=== PATIENT | male | born 1990 | race American Indian/Alaskan Native ===

== ENCOUNTER 2020-01-20 20:07 | Emergency (ER) | payer MEDICAID ==
--- NOTE | 2020-01-20 21:23 | EDM.PDOC ---
ED HPI GENERAL MEDICAL PROBLEM - General Chief Complaint: Respiratory Problem Stated Complaint: SORE CHEST, SORE THROAT Time Seen by Provider: 01/20/20 21:15 Source of Information: Reports: Patient History Limitations: Reports: No Limitations - History of Present Illness INITIAL COMMENTS - FREE TEXT/NARRATIVE: has had st , cough and left sided ear pain for 3 days has gradually gotten worse pain radiates from the throat to the ear Onset: Gradual Duration: Day(s): (3) Location: Reports: Chest Quality: Reports: Burning, Sharp Severity: Moderate Worsens with: Reports: Breathing, Movement Associated Symptoms: Reports: Loss of Appetite, Malaise - Related Data Allergies Allergy/AdvReac Type Severity Reaction Status Date / Time amoxicillin Allergy Other Verified 01/20/20 21:44 Home Meds: Home Meds Azithromycin [Zithromax] 250 mg PO DAILY #4 tab 01/20/20 [Rx] Omeprazole Magnesium [Prilosec Otc] 5 mg PO DAILY PRN 01/20/20 [History] ED ROS GENERAL - Review of Systems Review Of Systems: Comprehensive ROS is negative, except as noted in HPI. ED EXAM, GENERAL - Physical Exam Exam: See Below Exam Limited By: No Limitations General Appearance: Alert, WD/WN, No Apparent Distress Eye Exam: Bilateral Eye: EOMI Ears: Normal External Exam Ear Exam: Bilateral Ear: Swelling, TM Dull Nose: Clear Rhinorrhea Throat/Mouth: Inflammation (erythema oropharynx) Head: Atraumatic, Normocephalic Neck: Supple, Non-Tender, Full Range of Motion Respiratory/Chest: Lungs Clear, Normal Breath Sounds, Chest Non-Tender Cardiovascular: Regular Rate, Rhythm, No JVD Back Exam: Full Range of Motion Extremities: Normal Range of Motion Neurological: Alert, Oriented, CN II-XII Intact Psychiatric: Normal Affect Course - Orders/Labs/Meds Orders: Active Orders 24 hr Category Date Time Status CULTURE STREP A CONFIRMATION [RM] Stat Lab 01/20/20 21:15 Results STREP SCRN A RAPID W CULT CONF [] Stat Lab 01/20/20 21:15 Results - Re-Assessments/Exams Free Text/Narrative Re-Assessment/Exam: 01/20/20 22:19 reviewed tests results negative pt given note for work Departure - Departure Time of Disposition: 22:30 Disposition: Home, Self-Care 01 Clinical Impression: Acute bacterial pharyngitis - Discharge Information Referrals: PCP,None [Primary Care Provider] - Forms: ED Department Discharge Sepsis Event Note - Focused Exam Date Exam was Performed: 01/20/20 Time Exam was Performed: 22:19 - My Orders Last 24 Hours: My Active Orders 01/20/20 21:15 CULTURE STREP A CONFIRMATION [RM] Stat STREP SCRN A RAPID W CULT CONF [RM] Stat - Assessment/Plan Last 24 Hours: My Active Orders 01/20/20 21:15 CULTURE STREP A CONFIRMATION [RM] Stat STREP SCRN A RAPID W CULT CONF [RM] Stat
[2020-01-20] MEDS ORDERED: Azithromycin 500 MG Tab PO ONE (22:21)
== END 2020-01-20 22:44 | disposition home or self-care (01) ==
LOC: FB.ED 20:07
DX: J02.8 Acute pharyngitis due to other specified organisms (principal); B96.89 Other specified bacterial agents as the cause of diseases classified elsewhere; Z88.1 Allergy status to other antibiotic agents
CPT/HCPCS: 87081; 87804; 87880; 99283; A9270

== ENCOUNTER 2020-07-13 07:05 | Day surgery (SDC) | payer MEDICAID, OTHER ==
[~2020-07-13 07:05] MED LIST: Lactated Ringers 1,000 ML IV SCH; Sodium Chloride 0.9% 10 ML Syringe FLUSH PRN
[2020-07-13] MEDS ORDERED: Propofol 200 MG/20 ML SDV IV ONE (07:06)
[2020-07-13] MEDS ORDERED: Lidocaine 2% 5 ML SDV IV ONE (07:06)
--- NOTE | 2020-07-13 08:09 | PCM.OPNOTE ---
- General Post-Op/Procedure Note Date of Surgery/Procedure: 07/13/20 Operative Procedure(s): egd with biopsy Findings: gastritis irregular z line hiatal hernia Pre Op Diagnosis: heart burn Post-Op Diagnosis: gastritis. irregular z line. hiatal hernia Anesthesia Technique: MAC Primary Surgeon: Linden Sarmiento Anesthesia Provider: Mc Pak Pathology: stomach and distal esophagus Complications: None Condition: Good Free Text/Narrative:: see dictation
--- NOTE | 2020-07-13 13:40 | OR ---
DATE OF OPERATION: 07/13/2020 SURGEON: Linden Sarmiento MD PROCEDURE PERFORMED: Esophagogastroduodenoscopy with cold forceps biopsy. PREOPERATIVE DIAGNOSIS: History of heartburn. POSTOPERATIVE DIAGNOSES: Gastritis, hiatal hernia, and irregular Z-line. INDICATIONS FOR PROCEDURE: This is a 30-year-old white male, referred with a 10 year history of what appears to be heartburn, gastroesophageal reflux disease. He has never had an EGD, does report some relief recently with the addition of proton pump inhibitor. DESCRIPTION OF OPERATION: After an excellent IV sedation was administered, the bite block was inserted. Flexible endoscope was passed without difficulty down the patient's esophagus into the stomach. Stomach was insufflated. Scope passed through the pylorus, second portion of the duodenum and slowly withdrawn. The following findings were noted: Duodenum was unremarkable. Stomach, especially in the area of the antrum, mild gastritis, biopsies were taken. The patient also appears to have a small hiatal hernia. GE junction measured at approximately 38 cm. The Z-line itself appeared to be slightly irregular and several biopsies were taken of this area. The remainder of the esophageal exam was unremarkable. The patient tolerated the procedure well, was taken to Recovery. Results will be sent via letter. /[id number] /MODL
== END 2020-07-13 09:16 | disposition home or self-care (01) ==
LOC: FB.SDS 07:05
PROVIDERS: ATTEND Surgery
DX: K29.50 Unspecified chronic gastritis without bleeding (principal); K31.89 Other diseases of stomach and duodenum; K20.0 Eosinophilic esophagitis; K44.9 Diaphragmatic hernia without obstruction or gangrene; Z79.899 Other long term (current) drug therapy; Z88.0 Allergy status to penicillin; Z87.891 Personal history of nicotine dependence
CPT/HCPCS: 00731-QZ; 88305; 88313; 88342; J2001; J2704; J7120

== ENCOUNTER 2020-07-17 20:08 | Emergency (ER) | payer OTHER, MEDICAID ==
[2020-07-17] MEDS ORDERED: Acetaminophen/HYDROcodone 325-5 MG Tab PO STA (20:40)
[2020-07-17] MEDS ORDERED: Ketorolac 60 MG/2 ML SDV IM ONE (20:40)
--- NOTE | 2020-07-17 21:16 | EDM.PDOC ---
ED HPI GENERAL MEDICAL PROBLEM - General Stated Complaint: POSSIBLE BROKEN ARM Time Seen by Provider: 07/17/20 21:10 Source of Information: Reports: Patient History Limitations: Reports: No Limitations - History of Present Illness INITIAL COMMENTS - FREE TEXT/NARRATIVE: Patient presented to the ED because of a left elbow pain. [place]. The pain is 8/10 and couldn't move his left elbow. - Related Data Allergies Allergy/AdvReac Type Severity Reaction Status Date / Time amoxicillin Allergy Other Verified 07/09/20 11:45 Home Meds: Home Meds Pantoprazole [ProTONIX] 40 mg PO DAILY 07/09/20 [History] Acetaminophen/HYDROcodone [Bernice 325-5 MG] 1 - 2 tab PO Q6H PRN #15 tab 07/17/20 [Rx] Past Medical History Gastrointestinal History: Reports: Other (See Below) Other Gastrointestinal History: acid reflux Musculoskeletal History: Reports: Fracture, Other (See Below) Other Musculoskeletal History: tibia, arm, finger - Past Surgical History HEENT Surgical History: Reports: Other (See Below) Other HEENT Surgeries/Procedures: wisdom teeth removal GI Surgical History: Reports: Hernia Repair/Other Other Male Surgeries/Procedures: INGUINAL HERNIA, BILATERAL Social & Family History - Family History Family Medical History: Noncontributory - Caffeine Use Caffeine Use: Reports: Energy Drinks Review of Systems - Review of Systems Review Of Systems: See Below Constitutional: Reports: No Symptoms Eyes: Reports: No Symptoms Ears: Reports: No Symptoms Nose: Reports: No Symptoms Mouth/Throat: Reports: No Symptoms Respiratory: Reports: No Symptoms Cardiovascular: Reports: No Symptoms GI/Abdominal: Reports: No Symptoms Genitourinary: Reports: No Symptoms Musculoskeletal: Reports: Joint Pain, Joint Swelling Skin: Reports: No Symptoms ED EXAM, GENERAL - Physical Exam Exam: See Below Exam Limited By: No Limitations General Appearance: Alert, No Apparent Distress Ears: Normal External Exam, Normal Canal Nose: Normal Inspection, Normal Mucosa, No Blood Throat/Mouth: Normal Inspection, Normal Lips, Normal Teeth Head: Atraumatic, Normocephalic Neck: Normal Inspection, Supple, Non-Tender, Full Range of Motion Respiratory/Chest: No Respiratory Distress, Lungs Clear, Normal Breath Sounds Cardiovascular: Normal Peripheral Pulses, Regular Rate, Rhythm, No Edema, No JVD, No Murmur GI/Abdominal: Normal Bowel Sounds, Soft, Non-Tender, No Organomegaly Back Exam: Normal Inspection, Full Range of Motion Extremities: Joint Swelling, Arm Pain, Limited Range of Motion, Other (tenderness left elbow) Course - Vital Signs Text/Narrative:: Xray left elbow-see result Toradol 60 mg IM x1 Bernice 5/325, 2 tabs po x 1 dose Ortho glass splint applied by ED physician - Orders/Labs/Meds Orders: Active Orders 24 hr Category Date Time Status Elbow Min 3V Lt [CR] Stat Exams 07/17/20 20:15 Taken Meds: Medications Discontinued Medications Generic Name Dose Route Start Last Admin Trade Name Freq PRN Reason Stop Dose Admin Hydrocodone Bitart/Acetaminophen 2 tab 07/17/20 20:40 07/17/20 21:07 Bernice 325-5 Mg PO 07/17/20 20:41 2 tab NOW STA Administration Ketorolac Tromethamine 60 mg 07/17/20 20:40 07/17/20 21:07 Toradol IM 07/17/20 20:41 60 mg ONETIME ONE Administration Departure - Departure Time of Disposition: 21:15 Disposition: Admitted As Inpatient 68 Condition: Good Clinical Impression: Avulsion fracture - Discharge Information Prescriptions: Acetaminophen/HYDROcodone [Bernice 325-5 MG] 1 - 2 tab PO Q6H PRN #15 tab PRN Reason: Pain Instructions: Ulnar Collateral Ligament Injury of the Elbow, Phase II Rehab- [facility] Referrals: Darrick Maldonado MD [Primary Care Provider] - Additional Instructions: please read discharge instructions on avulsion fracture take norco5/325, 1-2 tablets every 4-6 hours as needed for pain Follow up with ortho this coming week - My Orders Last 24 Hours: My Active Orders 07/17/20 20:15 Elbow Min 3V Lt [CR] Stat - Assessment/Plan Last 24 Hours: My Active Orders 07/17/20 20:15 Elbow Min 3V Lt [CR] Stat
== END 2020-07-17 21:42 | disposition home or self-care (01) ==
LOC: FB.ED 20:08
DX: S52.042A Displaced fracture of coronoid process of left ulna, initial encounter for closed fracture (principal); K21.9 Gastro-esophageal reflux disease without esophagitis; Z88.1 Allergy status to other antibiotic agents; Z79.899 Other long term (current) drug therapy; W17.89XA Other fall from one level to another, initial encounter; Y92.828 Other wilderness area as the place of occurrence of the external cause
CPT/HCPCS: 29105; 73080-LT; 96372; 99283-25; A9270-GY; J1885

== ENCOUNTER 2020-10-23 00:30 | Emergency (ER) | payer OTHER, MEDICAID ==
[2020-10-23] MEDS ORDERED: Acetaminophen/HYDROcodone 325-5 MG Tab PO ONE (00:31)
--- NOTE | 2020-10-23 13:52 | EDM.PDOC ---
ED HPI GENERAL MEDICAL PROBLEM - General Chief Complaint: General Stated Complaint: INFECTED TOE NAIL Time Seen by Provider: 10/23/20 00:30 Source of Information: Reports: Patient History Limitations: Reports: No Limitations - History of Present Illness INITIAL COMMENTS - FREE TEXT/NARRATIVE: pt c/o right ingrown right great toenail , tells me it has been bothering him for about 3 days and he is worried about infection, pt denies any fever, drainage or any other associated sx or concerns. Left Great Toe Pain Score (Numeric/FACES): 8 - Related Data Allergies Allergy/AdvReac Type Severity Reaction Status Date / Time amoxicillin Allergy Other Verified 10/23/20 00:48 Home Meds: Home Meds Pantoprazole [ProTONIX] 40 mg PO DAILY 07/09/20 [History] Past Medical History Gastrointestinal History: Reports: GERD Other Gastrointestinal History: acid reflux Musculoskeletal History: Reports: Fracture, Other (See Below) Other Musculoskeletal History: tibia, arm, finger - Past Surgical History HEENT Surgical History: Reports: Other (See Below) Other HEENT Surgeries/Procedures: wisdom teeth removal GI Surgical History: Reports: Hernia Repair/Other Other Male Surgeries/Procedures: INGUINAL HERNIA, BILATERAL Social & Family History - Family History Family Medical History: No Pertinent Family History - Tobacco Use Tobacco Use Status *Q: Former Tobacco User Used Tobacco, but Quit: Yes Month/Year Tobacco Last Used: 2019 - Caffeine Use Caffeine Use: Reports: Energy Drinks - Recreational Drug Use Recreational Drug Use: No ED ROS GENERAL - Review of Systems Review Of Systems: See Below Constitutional: Reports: No Symptoms HEENT: Reports: No Symptoms Respiratory: Reports: No Symptoms Cardiovascular: Reports: No Symptoms ED EXAM, GENERAL - Physical Exam Exam: See Below Respiratory/Chest: No Respiratory Distress, Lungs Clear Cardiovascular: Normal Peripheral Pulses, Regular Rate, Rhythm Extremities: Other (pt has mild inflimation at medial side of right great toe nail , no palpable abscess and no active drainage. ) Neurological: Alert, Oriented Course - Vital Signs Text/Narrative:: pt has soft tissue irritation and inflammation at right great toe , he was advised to schedule a follow up appointent with PCP in the morning for partial resection of great toe neail. pt was given pre-pack / 4 tablets hydrocodone for pain control Last Recorded V/S: Last Vital Signs Temp 36.3 C 10/23/20 01:18 Pulse 68 10/23/20 01:18 Resp 18 10/23/20 01:18 BP 115/67 10/23/20 01:18 Pulse Ox 95 10/23/20 01:18 Departure - Departure Time of Disposition: 01:00 Disposition: Home, Self-Care 01 Clinical Impression: Great toe pain - Discharge Information Instructions: Ingrown Toenail Referrals: Darrick Maldonado MD [Primary Care Provider] - Forms: ED Department Discharge Additional Instructions: Soak your foot in warm water. May take Hydrocodone 2 tabs every 4 hours as needed for pain management. Follow-up with primary care physician in the AM. Sepsis Event Note (ED) - Evaluation Sepsis Screening Result: No Definite Risk
== END 2020-10-23 01:19 | disposition home or self-care (01) ==
LOC: FB.ED 00:30
DX: M79.674 Pain in right toe(s) (principal); K21.9 Gastro-esophageal reflux disease without esophagitis; Z79.899 Other long term (current) drug therapy; Z87.891 Personal history of nicotine dependence; Z88.1 Allergy status to other antibiotic agents
CPT/HCPCS: 99283; A9270-GY

== ENCOUNTER 2021-02-25 22:27 | Emergency (ER) | payer OTHER, MEDICAID ==
[2021-02-25] MEDS ORDERED: Cephalexin 500 MG Cap PO ONE (22:28)
[2021-02-25] MEDS ORDERED: traMADol 50 MG Tab PO ONE (22:28)
--- NOTE | 2021-02-25 22:38 | EDM.PDOC ---
ED HPI GENERAL MEDICAL PROBLEM - General Stated Complaint: R BIG TOE INJURY Time Seen by Provider: 02/25/21 22:35 Source of Information: Reports: Patient History Limitations: Reports: No Limitations - History of Present Illness INITIAL COMMENTS - FREE TEXT/NARRATIVE: Otoniel complains of right toe injury,and pus from the toe. He had pus before he stubbed it tonight.Throbbing pain. Initially bleeding,but this has improved - Related Data Allergies Allergy/AdvReac Type Severity Reaction Status Date / Time amoxicillin Allergy Other Verified 10/23/20 00:48 Home Meds: Home Meds Pantoprazole [ProTONIX] 40 mg PO DAILY 07/09/20 [History] Past Medical History Gastrointestinal History: Reports: GERD Other Gastrointestinal History: acid reflux Musculoskeletal History: Reports: Fracture, Other (See Below) Other Musculoskeletal History: tibia, arm, finger - Past Surgical History HEENT Surgical History: Reports: Other (See Below) Other HEENT Surgeries/Procedures: wisdom teeth removal GI Surgical History: Reports: Hernia Repair/Other Other Male Surgeries/Procedures: INGUINAL HERNIA, BILATERAL Social & Family History - Family History Family Medical History: No Pertinent Family History - Caffeine Use Caffeine Use: Reports: Energy Drinks Review of Systems - Review of Systems Review Of Systems: Comprehensive ROS is negative, except as noted in HPI. ED EXAM, GENERAL - Physical Exam Exam: See Below Exam Limited By: No Limitations General Appearance: Alert, WD/WN Ear Exam: Bilateral Ear: Auricle Normal, Canal Normal, TM normal Nose: Normal Inspection Throat/Mouth: Normal Inspection Head: Atraumatic Neck: Normal Inspection Respiratory/Chest: No Respiratory Distress Cardiovascular: Normal Peripheral Pulses GI/Abdominal: Normal Bowel Sounds (Male) Exam: No Hernia Extremities: Redness, Other (Toe is tender,ingrown) Neurological: Alert Psychiatric: Normal Affect Departure - Departure Time of Disposition: 22:37 Disposition: Home, Self-Care 01 Condition: Good Clinical Impression: Great toe pain - Discharge Information Referrals: Darrick Maldonado MD [Primary Care Provider] - - Problem List & Annotations (1) Great toe pain SNOMED Code(s): 712717604 Code(s): M79.676 - PAIN IN UNSPECIFIED TOE(S) Status: Acute - Problem List Review Problem List Initiated/Reviewed/Updated: Yes - My Orders Last 24 Hours: Tramadol 50 mg tid prn and Cephalexin 500 mg po tid. Follow up tomorrow
== END 2021-02-25 23:00 | disposition home or self-care (01) ==
LOC: FB.ED 22:27
DX: M79.674 Pain in right toe(s) (principal); K21.9 Gastro-esophageal reflux disease without esophagitis; Z79.899 Other long term (current) drug therapy; Z88.0 Allergy status to penicillin
CPT/HCPCS: 99283; A9270

== ENCOUNTER 2021-03-29 19:07 | Emergency (ER) | payer OTHER, MEDICAID ==
--- NOTE | 2021-03-29 19:56 | EDM.PDOC ---
ED HPI GENERAL MEDICAL PROBLEM - General Stated Complaint: LEFT FINGER LACERATION Time Seen by Provider: 03/29/21 19:25 Source of Information: Reports: Patient History Limitations: Reports: No Limitations - History of Present Illness INITIAL COMMENTS - FREE TEXT/NARRATIVE: Patient presented to the ED because of left thumb laceration. 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 He is able to extend and flex the left index finger without any difficulty. - Related Data Allergies Allergy/AdvReac Type Severity Reaction Status Date / Time amoxicillin Allergy Other Verified 10/23/20 00:48 Home Meds: Home Meds Pantoprazole [ProTONIX] 40 mg PO DAILY 07/09/20 [History] Past Medical History Gastrointestinal History: Reports: GERD Other Gastrointestinal History: acid reflux Musculoskeletal History: Reports: Fracture, Other (See Below) Other Musculoskeletal History: tibia, arm, finger - Past Surgical History HEENT Surgical History: Reports: Other (See Below) Other HEENT Surgeries/Procedures: wisdom teeth removal GI Surgical History: Reports: Hernia Repair/Other Other Male Surgeries/Procedures: INGUINAL HERNIA, BILATERAL Social & Family History - Family History Family Medical History: No Pertinent Family History - Tobacco Use Tobacco Use Status *Q: Former Tobacco User Used Tobacco, but Quit: Yes Month/Year Tobacco Last Used: 02/2019 - Caffeine Use Caffeine Use: Reports: Coffee, Energy Drinks, Soda - Recreational Drug Use Recreational Drug Use: No Review of Systems - Review of Systems Review Of Systems: See Below Constitutional: Reports: No Symptoms Eyes: Reports: No Symptoms Ears: Reports: No Symptoms Nose: Reports: No Symptoms Mouth/Throat: Reports: No Symptoms Respiratory: Reports: No Symptoms Cardiovascular: Reports: No Symptoms GI/Abdominal: Reports: No Symptoms Genitourinary: Reports: No Symptoms Musculoskeletal: Reports: No Symptoms Skin: Reports: Wound Neurological: Reports: No Symptoms ED EXAM, GENERAL - Physical Exam Exam: See Below Exam Limited By: No Limitations General Appearance: Alert, No Apparent Distress Ears: Normal External Exam, Normal Canal Nose: Normal Inspection, Normal Mucosa, No Blood Throat/Mouth: Normal Inspection, Normal Lips, Normal Teeth Head: Atraumatic, Normocephalic Neck: Normal Inspection, Supple, Non-Tender, Full Range of Motion Respiratory/Chest: No Respiratory Distress, Lungs Clear, Normal Breath Sounds Cardiovascular: Normal Peripheral Pulses, Regular Rate, Rhythm, No Edema, No Gallop, No JVD, No Murmur, No Rub GI/Abdominal: Normal Bowel Sounds, Soft, Non-Tender, No Organomegaly Back Exam: Normal Inspection, Full Range of Motion Extremities: Normal Inspection, Normal Range of Motion, Non-Tender Neurological: Alert, Oriented, CN II-XII Intact Psychiatric: Normal Affect, Normal Mood ED TRAUMA EXTREMITY PROCEDURES - Laceration/Wound Repair Left Digit - 1st (Thumb) Lac/Wound Length In cm: 2.5 Appearance: Superficial Distal NVT: Neuro & Vascular Intact Local Anesthesia - Lidocaine (Xylocaine): 1% Plain Local Anesthetic Volume: 2cc Skin Prep: Chlorhexidine (Hibiciens), Saline Closed With: Sutures Suture Size: 3-0 Suture Type: Nylon Course - Vital Signs Text/Narrative:: UTD with immunization Last Recorded V/S: Last Vital Signs Temp 36.7 C 03/29/21 19: Pulse 84 03/29/21 19:21 Resp 18 03/29/21 19:21 BP 144/80 H 03/29/21 19:21 Pulse Ox 97 03/29/21 19:21 Departure - Departure Time of Disposition: 20:00 Disposition: Home, Self-Care 01 Condition: Good Clinical Impression: Laceration - Discharge Information Instructions: Laceration Care, Adult, [id number] Referrals: Darrick Maldonado MD [Primary Care Provider] - Forms: ED Department Discharge Additional Instructions: Please read discharge instructions on laceration No need to apply an antibiotic ointment Check daily for infection: increasing redness,swelling,pain,pus discharge Removal of suture in 10 days Sepsis Event Note (ED) - Evaluation Sepsis Screening Result: No Definite Risk
== END 2021-03-29 20:05 | disposition home or self-care (01) ==
LOC: FB.ED 19:07
DX: S61.012A Laceration without foreign body of left thumb without damage to nail, initial encounter (principal); K21.9 Gastro-esophageal reflux disease without esophagitis; Z88.0 Allergy status to penicillin; Z79.899 Other long term (current) drug therapy; Z87.891 Personal history of nicotine dependence; W26.8XXA Contact with other sharp object(s), not elsewhere classified, initial encounter
CPT/HCPCS: 12001; 99282-25

== ENCOUNTER 2021-10-01 20:46 | Emergency (ER) | payer OTHER, MEDICAID ==
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
[2021-10-01] MEDS ORDERED: Diphtheria,Pertussis(Acell),Tetanus Vaccine 0.5 ML Syringe IM ONE (21:41)
[2021-10-01] MEDS ORDERED: Sodium Chloride 0.9% 1,000 ML IV SCH (23:45)
[2021-10-01] MEDS ORDERED: Sodium Chloride 0.9% 10 ML Syringe FLUSH PRN (23:57)
[2021-10-01] MEDS ORDERED: ceFAZolin 1 GM Vial IVPUSH ONE (23:57)
[2021-10-02] MEDS ORDERED: ceFAZolin 1 GM Vial ONE (00:16)
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
== END 2021-10-02 00:45 ==
LOC: FB.ED 20:46
DX: S89.81XA Other specified injuries of right lower leg, initial encounter (principal); L03.115 Cellulitis of right lower limb; K21.9 Gastro-esophageal reflux disease without esophagitis; Z88.0 Allergy status to penicillin; Z79.899 Other long term (current) drug therapy; Z23 Encounter for immunization; W22.09XA Striking against other stationary object, initial encounter
CPT/HCPCS: 36415; 73590; 80053; 85025; 86140; 87040; 90471; 90715; 96374; 99284; J0690; J7030

== ENCOUNTER 2022-12-30 18:05 | Emergency (ER) | payer OTHER, MEDICAID ==
[2022-12-30] MEDS ORDERED: Cyclobenzaprine 10 MG Tab PO ONE (18:32)
[2022-12-30] MEDS ORDERED: Acetaminophen 500 MG Tab PO ONE (18:32)
[2022-12-30] MEDS ORDERED: diphenhydrAMINE 50 MG/ML SDV IM ONE ×2 (18:33→19:37)
[2022-12-30] MEDS ORDERED: Dexamethasone 4 MG/ML 5 ML MDV IM ONE (19:36)
== END 2022-12-30 19:53 | disposition home or self-care (01) ==
LOC: FB.ED 18:05
DX: S39.012A Strain of muscle, fascia and tendon of lower back, initial encounter (principal); K21.9 Gastro-esophageal reflux disease without esophagitis; Z88.0 Allergy status to penicillin; Z79.899 Other long term (current) drug therapy
CPT/HCPCS: 96372; 99283; A9270-GY; J1100; J1200